=== PATIENT | male | born 1965 | race Caucasian/White ===

== ENCOUNTER 2020-04-22 14:26 | Emergency (ER) | payer BC, SELFPAY ==
[2020-04-22 14:37] VITALS: BP 152/89; PULSE 64; RESP 20; TEMP 36.8; O2SAT 98
--- NOTE | 2020-04-22 14:44 | ED.EAR ---
HPI - Ear Problem General Chief complaint: Ear Stated complaint: ear pain Source: patient and RN notes reviewed Mode of arrival: ambulatory Limitations: no limitations History of Present Illness HPI Narrative: The patient- previously mostly healthy w/ HTN AODM- presents with left ear discomfort that is mild, worse with pressure/palpation, better with rest. Patient states he has been swimming more; no vertigo, hearing loss, discharge, injury, blood. He would like refill of his blood pressure pills Related Data Home Medications Medication Instructions Recorded Confirmed blood sugar diagnostic #10 each 01/05/20 aspirin 81 mg tablet,delayed 81 mg PO DAILY 02/20/20 02/20/20 release Allergies Allergy/AdvReac Type Severity Reaction Status Date / Time No Known Allergies Allergy Unverified 04/22/20 14:42 Review of Systems Review of Systems: Narrative: General/Constitutional: No weight loss,fever Eyes: N0: Redness,discharge Ears/Nose/Throat: No: Epistaxis,ear discharge Respiratory: Denies: Hemoptysis Gastrointestinal: No Vomiting, Bleeding-rectal Skin: No Lumps, eruption Neurologic: No Focal Weakness,Sz Hematologic: Denies: Petechiae/Purpura Psychiatric: No: Suicida ideationl All Other Systems: Reviewed and Negative PMFSH Social History Social History Smoking status: Never smoker Alcohol intake: current Comments At time of signature, agree with nursing past medical, surgical, social and family history. There is no relevant family history pertinent to the presenting complaint Exam Narrative: Exam Narrative: General Appearance: Well appearing, Well nourished, No distress EYE: PERRLA , EOMI Ears: Left EAC with mucopus, right external ear normal, Auditory canal normal Nose: Normal nose, Nares clear Mouth/Throat: Normal appearing, Normal lips: Supple, Respiratory: Airway patent, No respiratory distress Skin: Warm, Dry Neurological: A&O x3, Normal affect Course Vital Signs Vital signs: Vital Signs Temperature 98.2 F 04/22/20 14:37 Pulse Rate 64 04/22/20 14:37 Respiratory Rate 20 04/22/20 14:37 Blood Pressure 152/89 H 04/22/20 14:37 Pulse Oximetry 98 04/22/20 14:37 Temperature 98.2 F 04/22/20 14:37 Pulse Rate 64 04/22/20 14:37 Respiratory Rate 20 04/22/20 14:37 Blood Pressure 152/89 H 04/22/20 14:37 Pulse Oximetry 98 04/22/20 14:37 Medical Decision Making Vital Signs Vital Signs: Vital Signs Temperature 98.2 F 04/22/20 14:37 Pulse Rate 64 04/22/20 14:37 Respiratory Rate 20 04/22/20 14:37 Blood Pressure 152/89 H 04/22/20 14:37 Pulse Oximetry 98 04/22/20 14:37 Temperature 98.2 F 04/22/20 14:37 Pulse Rate 64 04/22/20 14:37 Respiratory Rate 04/22/20 14:37 Blood Pressure 152/89 H 04/22/20 14:37 Pulse Oximetry 98 04/22/20 14:37 Discharge Plan Discharge Clinical Impression: Otitis externa Qualifiers: Otitis externa type: unspecified type Chronicity: acute Laterality: left Qualified Code(s): H60.502 - Unspecified acute noninfective otitis externa, left ear Patient Disposition: Home, Self-Care Condition: Stable Instructions: Antibiotic Form Prescriptions: New ciprofloxacin HCl [Cipro] 250 mg tablet 250 mg PO Q12H Qty: 6 RF: 0 ygqeoema-wcorpykrw-VR 3.5-10,000-1 mg/mL-unit/mL-% solution 4 drop RIGHT EAR Q6H 7 Days Qty: 10 RF: 0 No Action lisinopril 20 mg tablet 20 mg PO DAILY Qty: 90 RF: 3 metformin 500 mg tablet extended release 24 hr 500 mg PO DAILY Qty: 90 RF: 3 aspirin 81 mg tablet,delayed release (DR/EC) 81 mg PO DAILY RF: 0 (DME) lancets [OneTouch Delica Lancets] 33 gauge misc See Rx Instructions .ROUTE .MEDSUPPLY Qty: 100 RF: 3 scopolamine base 1 mg over 3 days patch 3 day 1 patch TRANSDERM Q72H PRN (Reason: motion sickness) Qty: 10 RF: 1 (DME) blood sugar diagnostic [Blood Glucose Te
== END 2020-04-22 15:16 | disposition home or self-care (01) ==
PROVIDERS: Emergency Provider Emergency Medicine; PCP Family Medicine
DX: H60.502 Unspecified acute noninfective otitis externa, left ear (principal); I10 Essential (primary) hypertension; E11.9 Type 2 diabetes mellitus without complications; Z79.84 Long term (current) use of oral hypoglycemic drugs
CPT/HCPCS: 99213; G0463

== ENCOUNTER 2020-09-25 02:12 | Outpatient (CLI) | payer BC, SELFPAY ==
[2020-09-25 19:32] LABS: SARS-CoV-2 RNA PCR Negative
== END 2020-09-25 02:13 | disposition home or self-care (01) ==
LOC: ANHCOVIDDT 02:13
PROVIDERS: PCP Family Medicine; Visit Provider Internal Medicine Gastroenterology
DX: Z01.812 Encounter for preprocedural laboratory examination (principal); Z20.822 Contact with and (suspected) exposure to COVID-19
CPT/HCPCS: C9803; U0003

== ENCOUNTER 2020-09-29 02:19 | Day surgery (SDC) | payer BC, SELFPAY ==
[2020-09-22 13:08] VITALS: BMI 32.1
[2020-09-29 06:51] VITALS: BP 136/68; PULSE 90; RESP 18; TEMP 36.4; O2SAT 99; BMI 32.1
[2020-09-29] MEDS: LACTATED RINGERS 1,000 ML 150 ML IV CONT (07:08)
[2020-09-29 07:12] LABS: Glucose Point of Care 146 (65-105)
--- NOTE | 2020-09-29 07:39 | WPDANESEPPF ---
Anes - Initial Pre Proc Eval Procedure: Operation Date: 09/29/20 08:00 Proposed Procedures p Screening Colonoscopy - Patrice Felipe MD Date/Time: 09/29/20 07:39 Surgeon: Patrice Felipe MD Pre Op Diagnosis: neoplasm screening Patient Data Age: 55 Gender: M Height: 6 ft 2 in Weight: 113.5 kg Last Vital Signs Temp 97.6 F 09/29/20 06:51 Pulse 90 09/29/20 06:51 Resp 18 09/29/20 06:51 BP 136/68 09/29/20 06:51 Pulse Ox 99 09/29/20 06:51 Allergies Allergy/AdvReac Type Severity Reaction Status Date / Time No Known Allergies Allergy Verified 09/29/20 06:50 Home Medications Medication Instructions Recorded Confirmed Type lancets 33 gauge #100 each 10/27/19 07/06/20 Rx blood sugar diagnostic #10 each 01/05/20 07/06/20 History lisinopril 20 mg tablet 20 mg PO DAILY #90 tablet 02/20/20 09/22/20 Rx metformin 500 mg tablet,extended 500 mg PO DAILY #90 tablet 02/20/20 09/22/20 Rx release 24 hr metoprolol succinate 50 mg 50 mg PO DAILY #30 tablet 04/22/20 09/22/20 Rx tablet,extended release 24 hr blood sugar diagnostic See Rx Instructions .ROUTE 04/28/20 09/22/20 Rx .COMPLEX #100 each atorvastatin 10 mg tablet 10 mg PO DAILY #90 tablet 07/06/20 09/22/20 Rx Laboratory Tests 09/29/20 06:57 POC Capillary Glucose 146 mg/dl H mg/dl (65-105) Patient hx anesthesia problems: none Family hx anesthesia problems: none PMFSH Past Medical History Medical History (Updated 09/29/20 @ 07:39 by Benjamin Ridley MD) Benign essential hypertension Dyslipidemia Hypertension Social History Social History Smoking status: Never smoker Alcohol intake: current Drinks per week: 3 Substance use: unknown Substance use type: unknown Living arrangements: with family Spiritual care concerns: No Anes - Eval Final PreProcedure Day of Procedure 09/29/20 07:39 Patient weight: obese Heart: regular rate and rhythm Lungs: clear to auscultation Airway: Mallampati scale class II Neurological: alert and oriented Last oral intake: >/= 8 hours ASA classification: III Emergent: no Anesthetic plan: proceed Anesthesia type and monitoring: general GIVS and standard monitoring Informed Consent: The patient's anesthetic plan and its attendant risks and benefits were discussed with the patient/family/POA. Questions were solicited and answers provided to the satisfaction of the patient/family/POA.
--- NOTE | 2020-09-29 07:57 | PM.HPGS ---
History of Present Illness History of Present Illness Consent: Risks, benefits, and alternatives have been discussed and questions answered. Patient agrees to proceed with procedure. Chief complaint: neoplasm screening Narrative: Benjamin Cash is a 55 year old male here for first colonoscopy Review of Systems Constitutional: Constitutional: Denies headache(s) and Denies weakness Eyes: Eyes: Denies blurry vision ENT: Reports Normal hearing present, Denies headache(s) and Denies neck pain Cardiovascular: Cardiovascular: Denies chest pain and Denies dyspnea Respiratory: Respiratory: Denies dyspnea Gastrointestinal: Gastrointestinal: Reports no additional gastrointestinal complaints Genitourinary: Genitourinary: Denies dysuria Musculoskeletal: Musculoskeletal: Denies neck pain Integumentary/Breasts: Skin/Breast: Denies dry skin Neurologic: Reports Normal hearing present, Denies headache(s) and Denies weakness Psychiatric: Psychiatric: Denies anxiety Endocrine: Endocrine: Denies change in body appearance Hematologic/Lymphatic: Hematologic/Lymphatic: Denies easy bleeding Allergic/Immunologic: Allergic/Immunologic: Denies urticaria [facility] Past Medical History Medical History (Updated 09/29/20 @ 07:57 by Patrice Felipe MD) Benign essential hypertension Colon cancer screening Dyslipidemia Hypertension Social History Social History Smoking status: Never smoker Alcohol intake: current Drinks per week: 3 Substance use: unknown Substance use type: unknown Living arrangements: with family Spiritual care concerns: No Meds Home Medications and Allergies Home Medications Medication Instructions Recorded Confirmed Type lancets 33 gauge #100 each 10/27/19 07/06/20 Rx blood sugar diagnostic #10 each 01/05/20 07/06/20 History lisinopril 20 mg tablet 20 mg PO DAILY #90 tablet 02/20/20 09/22/20 Rx metformin 500 mg tablet,extended 500 mg PO DAILY #90 tablet 02/20/20 09/22/20 Rx release 24 hr metoprolol succinate 50 mg 50 mg PO DAILY #30 tablet 04/22/20 09/22/20 Rx tablet,extended release 24 hr blood sugar diagnostic See Rx Instructions .ROUTE 04/28/20 09/22/20 Rx .COMPLEX #100 each atorvastatin 10 mg tablet 10 mg PO DAILY #90 tablet 07/06/20 09/22/20 Rx Allergies Allergy/AdvReac Type Severity Reaction Status Date / Time No Known Allergies Allergy Verified 09/29/20 06:50 Vital Signs Vital Signs - 24 hr 09/29/20 06:51 Temperature 97.6 F Pulse Rate 90 Respiratory Rate 18 Blood Pressure 136/68 Pulse Oximetry 99 Exam Const: General: comfortable and no acute distress HENMT: General nose exam: Normal nares present Eyes: General: appearance normal, both eyes and all related structures Neck: Neck: no JVD Resp: Auscultation: clear to auscultation bilaterally Cardio: Rate: regular rate Rhythm: regular rhythm GI: Inspection: non-distended GI Palp: Yes Soft to palpation Skin: General skin exam: normal color Neuro: General: gait normal Speech: normal speech Extrem: General: normal to inspection Psych: Mental Status: mental status grossly normal Assessment and Plan Assessment and plan (1) Colon cancer screening: Code(s): Z12.11 - Encounter for screening for malignant neoplasm of colon Status: Acute Assessment and Plan: will proceed with colonoscopy
[2020-09-29 08:18] VITALS: BP 101/56; PULSE 68; RESP 20; O2SAT 98
[2020-09-29 08:28] VITALS: BP 103/61; PULSE 66; RESP 18; O2SAT 96
[2020-09-29 08:38] VITALS: BP 124/72; PULSE 64; RESP 18; O2SAT 98
== END 2020-09-29 09:00 | disposition home or self-care (01) ==
PROVIDERS: PCP Family Medicine; Visit Provider Internal Medicine Gastroenterology
PROC: 0DJD8ZZ Inspection of Lower Intestinal Tract, Via Natural or Artificial Opening Endoscopic (ICD-10-PCS; CPT 45378; principal; 2020-09-29 08:00)
DX: Z12.11 Encounter for screening for malignant neoplasm of colon (principal); K64.8 Other hemorrhoids; I10 Essential (primary) hypertension; E78.5 Hyperlipidemia, unspecified; E66.9 Obesity, unspecified; Z68.32 Body mass index [BMI] 32.0-32.9, adult
CPT/HCPCS: 45378; J2001; J2704; J7120

== ENCOUNTER → 2021-08-10 09:41 | Outpatient (CLI) | payer BC, SELFPAY ==
--- NOTE | ~2021-08-10 | XR_ITS ---
XR chest 2V 08/10/2021 09:59 Indication: Fatigue. Dyspnea. Procedure: 2 view chest Comparison: 09/25/2014 Findings: Heart size normal. No focal air space disease, pulmonary edema, pleural effusion or suspect ed pneumothorax. No acute osseous abnormality. Impression: 1: No acute cardiopulmonary disease. Reviewed, dictated and finalized at location [facility]. [facility] [employer] Impression: 1: No acute cardiopulmonary disease.
== END ==
PROVIDERS: PCP Family Medicine; Visit Provider Physician Assistant
DX: R53.83 Other fatigue (principal)
CPT/HCPCS: 71046

== ENCOUNTER 2024-02-16 09:15 | Emergency (ER) | payer BC, SELFPAY ==
[2024-02-16 09:25] VITALS: BP 140/88; PULSE 66; RESP 16; TEMP 36.6; O2SAT 100
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
[2024-02-16] MEDS: CLINDAMYCIN HCL 150 MG CAP 300 MG PO (11:11)
[2024-02-16 11:12] VITALS: BP 139/89; PULSE 65; RESP 17; TEMP 36.9; O2SAT 98
== END 2024-02-16 11:13 | disposition home or self-care (01) ==
PROVIDERS: Emergency Provider Emergency Medicine; PCP Family Medicine
DX: L03.116 Cellulitis of left lower limb (principal); I10 Essential (primary) hypertension; E78.5 Hyperlipidemia, unspecified
CPT/HCPCS: 99283; A9270

== ENCOUNTER 2025-01-07 07:00 | Outpatient (CLI) | payer BC, SELFPAY ==
--- NOTE | ~2025-01-07 | MR_ITS ---
MRI of the brain Clinical History: Ataxia Technique: Axial and sagittal T1-weighted images were acquired. These were followed by axial T2-weigh zachary, diffusion weighted, gradient, and FLAIR images. Thin cut coronal and axial T1-weighted and T2-we ighted images were performed through the internal auditory canals. Findings: There is no acute infarct, intracranial hemorrhage, or mass lesion. There is minimal chroni c white matter disease adjacent to the atrium of the right lateral ventricle. There is prominent dilatation of the lateral ventricles and third ventricle relative to the fourth ve ntricle and other subarachnoid spaces. Orbits are unremarkable. Paranasal sinuses and mastoid air ronald ls are clear. Major flow voids are intact. Sagittal midline structures are intact. No abnormality seen in the region of the internal auditory ca nals or CP angle regions. IMPRESSION: Findings suspicious for noncommunicating hydrocephalus, with dilatation of the lateral ventricles and third ventricle relative to the fourth ventricle and subarachnoid spaces. Reviewed, dictated and finalized at location . IMPRESSION: Findings suspicious for noncommunicating hydrocephalus, with dilatation of the lateral ventricles and third ventricle relative to the fourth ventricle and sub arachnoid spaces.
== END 2025-01-07 07:01 | disposition home or self-care (01) ==
LOC: MICIMG 07:01
PROVIDERS: PCP Family Medicine; Visit Provider Family Medicine
DX: G91.9 Hydrocephalus, unspecified (principal); R27.0 Ataxia, unspecified
CPT/HCPCS: 70551

== ENCOUNTER 2025-03-02 15:50 | Outpatient (CLI) | payer BC, SELFPAY ==
--- NOTE | ~2025-03-02 | MR_ITS ---
MRI of the brain Clinical History: Hydrocephalus Technique: Axial and sagittal T1-weighted images were acquired. These were followed by axial T2-weigh zachary, diffusion weighted, gradient, and FLAIR images. Following intravenous administration of 20 cc Mu ltiHance gadolinium, T1-weighted fat-sat imaging was performed in the axial, coronal, and sagittal pl anes. COMPARISON: 01/07/2025 Findings: There is no acute infarct, intracranial hemorrhage, or mass lesion. No significant signal a bnormality seen in the brain parenchyma. There is stable dilatation of the lateral ventricles and third ventricle as compared to the fourth ve ntricle and remaining subarachnoid spaces. Orbits are unremarkable. Paranasal sinuses and mastoid air cells are clear. Major intracranial flow voids appear intact. Sagittal midline structures are intact. No abnormal postcontrast enhancement identified. IMPRESSION: No change from prior exam. Findings again suspicious for noncommunicating hydrocephalus with dilatati on of the lateral ventricles and third ventricle as compared to the fourth ventricle remaining subara chnoid spaces. Reviewed, dictated and finalized at location . IMPRESSION: No change from prior exam. Findings again suspicious for noncommunicating hydro cephalus with dilatation of the lateral ventricles and third ventricle as fransisca red to the fourth ventricle remaining subarachnoid spaces.
== END 2025-03-02 15:51 | disposition home or self-care (01) ==
LOC: MICIMG 15:53
PROVIDERS: PCP Family Medicine; Visit Provider Neurological Surgery
DX: G91.9 Hydrocephalus, unspecified (principal)
CPT/HCPCS: 70553; A9577

== ENCOUNTER 2025-07-29 08:03 | Outpatient (CLI) | payer BC, SELFPAY ==
--- OUTSIDE RECORDS SUMMARY | 2008-05-04 08:06 | XMS_ITS | Continuity of Care Document ---
Author Organization [facility] Address [address] [place] [address] [address] [place] [address] Phone Care Team Providers Care Mobile Home Mechanic Name Role Phone Tony Andrews Unavailable Unavailable Procedures Procedure Date Office/outpatient Visit, Est Office/outpatient Visit, Est Eye Exam Established Pt Advance Directives Directive Yes / No Effective Date File Name No Information Encounters Encounter Description Practice Location Reason(s) For Visit Diagnoses Date Provider Providers Copied on Encounter Office/outpat ient Visit, Est [facility], [address] [place] [address] [address], [place], [place], [id number], tel:[phone] [facility] No Information 8 8 Doidallin Jimenez. [address] [facility] , [address], [place], [place], [facility], . tel:[phone] Office/outpat ient Visit, [facility], [address] [place] [address] [address], [place], [place], [id number], [place] tel:[phone] [facility] No Information 3-200 7 Doidallin Jimenez. [address] [facility] , [address], [place], [address], [place]. tel:[phone] [facility], [id number] [place] [address] [address], [place], [place], [id number], [place] tel:[phone] [facility] No Information 6-200 7 Doidallin Jimenez. [address] [facility] , [address], [place], [address], [place]. tel:[phone] Family History Family Member Type Diagnosis Age At Onset No Information Payers Payer name Insurance type Covered democrat ID Benigno perry(s) [facility] BL [id number] Social History Type Description Quantity Date Captured Comments Sex Male Smoking Status No Information Chief Complaint And Reason For Visit No Information Reason For Referral Reason For Referral No Information History Of Present Illness Encounter Date Complaint History Of Prese nt Illness No Information Functional Status Date Functional Assessmen t No Information Instructions Date Instruction Additional Infor mation No Information Assessments Type Assessment Date No Information Patient Care Teams Name Effective Dates (start - stop) Status Members No Information
--- OUTSIDE RECORDS SUMMARY | 2025-07-29 08:09 | XMS_ITS | Clinical Summary ---
Author Organization [facility] [address] [place] [id number] Care Team Providers Care Wind Technician Name Role Phone Gil Pardo MD Primary Care Provider [phone] Allergies No known active allergies Medications atorvastatin (LIPITOR) 10 mg tabletIndicatio ns:hyperlipidem ia Take 1 tablet (10 mg total) by mouth mechanics supervisor before breakfast 5 Active lisinopriL (PRINIVIL,ZESTR IL) 20 mg tabletIndicatio ns:hypertension Take 1 tablet (20 mg total) by mouth mechanics supervisor before breakfast 5 Active metFORMIN XR (GLUCOPHAGE XR) 500 mg 24 hr tabletIndicatio ns:type 2 diabetes mellitus Take 2 tablets (1,000 mg total) by mouth 2 (two) times a day 5 Active Rybelsus 7 mg tabletIndicatio ns:type 2 diabetes mellitus Take 1 tablet (7 mg total) by mouth mechanics supervisor before breakfast 5 Active metoprolol XL (TOPROL-XL) 50 mg extended release tabletIndicatio ns:hypertension Take 1 tablet (50 mg total) by mouth mechanics supervisor before breakfast ON HOLD PER MD D/T SIDE EFFECTS LAST DOSE 04/2025 Active acetaminophen 500 mg capsuleIndicati ons:Pain Take 2 capsules (1,000 mg total) by mouth every 6 (six) hours 5 Active docusate sodium (COLACE) 100 mg capsuleIndicati ons:constipatio n,Stool Softener Take 1 capsule (100 mg total) by mouth 2 (two) times a day 30 capsule Active oxyCODONE (ROXICODONE) 5 mg immediate release tabletIndicatio ns:Pain Take 1 tablet (5 mg total) by mouth every 4 (four) hours as needed for pain 10 tablet 5 Active Additional Information Patient not taking.Reason: states does not need, Reported on 07/09/2025 Active Problems Problem Noted Date Diagnosed Date 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 Encounters Date Type Department Care Team Description 07/09/2025 9:30 AM CDT Office Visit [place] [address] [place] [id number] Rodger Cheatham MD Aqueductal stenosis (HCC) (Primary Dx) 06/29/[address] [address] Mckinley Regan RN FMCHRISTIANO 06/26/2025 7:30 AM CDT - 06/26/2025 11:55 AM CDT Surgery [facility] [address] [place] [address] Rodger Cheatham MD Right Frontal Endoscopic Third Ventriculostomy 06/26/2025 7:30 AM CDT Anesthesia Event [facility] [address] [place] [address] Keila Sims MD PhD Asya Rooney, FRENCH COMBER 06/26/2025 5:59 AM CDT - 06/27/2025 12:02 PM CDT Hospital Encounter [address] [address] Rodger Cheatham MD Aqueductal stenosis (HCC) [Q03.0] (Primary Dx) Discharge Disposition: Discharge to home or self care 06/17/2025 2:30 PM CDT Pre-Admission Testing [facility] ([facility]) [address] [place] [id number] Preoperative testing (Primary Dx); Encounter for preadmission testing; Anticoagulant long-term use 05/27/2025 Documentation [facility] [address] [place] [address] 2 [address] [place] [phone] Mckinley Regan RN FMLA (For surgery) 05/14/2025 1:00 PM CDT Office Visit [address] [place] [address] Rodger Cheatham MD Aqueductal stenosis (HCC) [Q03.0] (Primary Dx); Encounter for preadmission testing; Anticoagulant long-term use 05/13/[address] [place] [address] Hafsa Che 05/11/2025 11:30 AM CDT - 05/11/2025 11:59 PM CDT Hospital Encounter [facility] [address] [place] [address] Rodger Cheatham MD Aqueductal stenosis (HCC) Discharge Disposition: Discharge to home or self care from Last 3 Months Family History Medical History Relation Name Comments Anesthesia problems Neg Hx Social History Tobacco Use Types Packs/Day Years Used Date Smoking Tobacco: Never Smokeless Tobacco: Never Tobacco Cessation:Counseling Given: Not Answered Alcohol Use Standard Drinks/Week Comments Yes 2 (1 standard drink = 0.6 oz pur e alcohol) AUDIT-C Answer Date Recorded Q1: How often do you have a drink containing alc ohol? 2-3 times a week 06/26/2025 Q2: How many drinks containi ng alcohol do you have on a typical day when you are drinking? 1 or 2 06/26/2025 Q3: How often do you have si x or more drinks on one occasion? Never 06/26/2025 Personal Safety Answer Date Recorded Have you ever been in or are you currently in a harmful physical or emotional relationship or is someone making you feel afraid or unsafe? 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 Gender Identity Not on file Sexual Orientation Not on file Last Filed Vital Signs Vital Sign Reading Time Taken Comments Blood Pressure 167/92 07/09/2025 9:39 AM CDT Pulse 73 07/09/2025 9:39 AM CDT Temperature 36.3 C (97.4 F) 07/09/2025 9:39 AM CDT Respiratory Rate 16 07/09/2025 9:39 AM CDT Oxygen Saturation 100% 07/09/2025 9:39 AM CDT Inhaled Oxygen Concentration - - Weight 110.1 kg (242 lb 12.8 oz) 07/09/2025 9:39 AM CDT Height 188 cm (6' 2) 07/09/2025 9:39 AM CDT Body Mass Index 31.17 07/09/2025 9:39 AM CDT Plan of Treatment Health Maintenance Due Date Last Done Comments Albumin Creatinine Ratio, Urine 1965 Colon Cancer Screening-Colonoscopy 1965 Depression Screening 1965 Hepatitis C Screening 1965 Prostate Cancer Screening-PSA 1965 Dilated Eye Exam 1965 Foot Exam 1965 Lipid Panel 1965 Hepatitis B Screening 1983 Regular Well Visit/Exam 18-64 1983 Pneumococcal vaccine <65 (1 of 2 - PCV) 1984 Zoster Vaccine (1 of 2) 2015 Covid-19 Vaccine (3 - 2024-2 6 season) 2025 01/11/2021, 12/21/2020 Influenza Vaccine (#1) 2025 , 08/24/2023, 07/07/2022, Additional history exists DTaP/Tdap/Td Vaccine (2 - Td or Tdap) 10/04/2025 10/04/2015 Hemoglobin A1C 10/25/2025 04/24/2025 eGFR 06/17/2026 06/17/2025 Medical Devices Implanted Type Area Tax Investigator Device Identifier Shelf Expiration Date Model / Serial / Lot Alex Craniomaxillofacial Cover Coker Hole 10mm Cranium Loprfl 3mm Screw [id number] - [id number] Implanted:Qty: 1 on 06/26/2025 by Rodger Cheatham MD at [facility] Alex Craniomaxillofacial [id number] / / Alex Craniomaxillofacial Screw Bone Cmf Cranial [place] Neuro Iii 1.5x4mm Titanium [id number] - [id number] Implanted:Qty: 3 on 06/26/2025 by Rodger Cheatham MD at [facility] Right: Cranial [place] Craniomaxillofacial [id number] / / Procedures Procedure Name Priority Date/Time Associated Diagnosis Comments POCT GLUCOSE DEVICE Routine 06/27/2025 8 :01 AM CDT POCT GLUCOSE DEVICE Routine 06/26/2025 8 :58 PM CDT POCT GLUCOSE DEVICE Routine 06/26/2025 6 :31 PM CDT POCT GLUCOSE DEVICE Routine 06/26/2025 2 :[address] HEAD STEALTH WO CONTRAST ED Urgent/IP Urgent 06/26/2025 12:09 PM CDT POCT GLUCOSE DEVICE Routine 06/26/2025 10:16 AM CDT PERIPHERAL LINE Routine 06/26/2025 8:33 AM CDT ANESTHESIA INTUBATION Routine 06/26/2025 8:30 AM CDT ENDOSCOPIC THIRD VENTRICULOSTOMY 06/26/2025 7:34 AM CDT Aqueductal stenosis (HCC) Case Notes 06/04@1520- Per Mckinley via msg 3 hrs ctc. ICU and no pathology- DMF B CHECK SAMPLE STAT 06/26/2025 7:05 AM CDT POCT GLUCOSE DEVICE Routine 06/26/2025 7 :[address] HEAD STEALTH WO CONTRAST ED Urgent/IP Urgent 06/26/2025 6:40 AM CDT EGFR Routine 06/17/2025 2:45 PM CDT Encounter for preadmission testing DIFFERENTIAL AUTO Routine 06/17/2025 2:4 5 PM CDT Encounter for preadmission testing COMPREHENSIVE METABOLIC PANEL Routine 06/17/2025 2:45 PM CDT Encounter for preadmission testing CBC WITH AUTO DIFFERENTIAL Routine 06/17/2025 2:45 PM CDT Encounter for preadmission testing DRUGS OF ABUSE SCREEN, URINE WITH REFLEX CONFIRMATION Routine 06/17/2025 2:45 PM CDT Encounter for preadmission testing PROTIME-INR Routine 06/17/2025 2:45 PM CDT Encounter for preadmission testing Anticoagulant long-term use TYPE AND SCREEN 14 DAY Routine 2:45 PM CDT Preoperative testing CPAP APTT ALGORITHM Routine 06/17/2025 2 :45 PM CDT Preoperative testing URINALYSIS AND REFLEX TO MICROSCOPIC AND CULTURE Routine 06/17/2025 2:45 PM CDT Encounter for preadmission testing ECG 12-LEAD Routine 06/17/2025 1:58 PM CDT Preoperative testing MRI CINE FLOW STUDY - BRAIN WO CONTRAST Schedule Routine, Read Routine (OP Routine) 05/11/2025 12:58 PM CDT Aqueductal stenosis (HCC) HEMOGLOBIN A1C Routine 04/24/2025 8:12 AM CDT Encounter for preadmission testing Type 2 diabetes mellitus without complication, unspecified whether longterm insulin use (HCC) from Last 3 Months or Most Recently Relevant to Health Maintenance Results * POCT glucose (06/27/2025 8:01 AM CDT) Glucose, POC 176 70 - 199 mg/dL Blood 06/27/2025 8:01 AM CDT 06/27/2025 8:01 AM CDT Rodger Cheatham MD LAB POCT ORDERABLES - DEVICE Final Result Performing Organization Address [facility] Co de Phone Number [facility] [place] [address] * (ABNORMAL) POCT glucose (06/26/2025 8:58 PM CDT) Glucose, POC 256(H) 70 - 199 mg/dL Blood 06/26/2025 8:58 PM CDT 06/26/2025 8:58 PM CDT us Rodger Cheatham MD LAB POCT ORDERABLES - DEVICE Final Result Performing Organization Address [facility] de Phone Number [facility] [place] [address] * POCT glucose (06/26/2025 6:31 PM CDT) Glucose, POC 192 70 - 199 mg/dL Blood 06/26/2025 6:31 PM CDT 06/26/2025 6:31 PM CDT us Rodger Cheatham MD LAB POCT ORDERABLES - DEVICE Final Result Performing Organization Address [facility] de Phone Number [facility] [place] [address] * (ABNORMAL) POCT glucose (06/26/2025 2:25 PM CDT) Glucose, POC 260(H) 70 - 199 mg/dL Blood 06/26/2025 2:25 PM CDT 06/26/2025 2:25 PM CDT us Rodger Cheatham MD LAB POCT ORDERABLES - DEVICE Final Result Performing Organization Address [facility] Co de Phone Number [facility] [place] [address] * CT Head Stealth WO Contrast (06/26/2025 12:09 PM CDT) Anatomical Region Laterality Modality Head and Neck N/A Computed Tomogra phy 06/26/2025 12:5 7 PM CDT Impressions 06/26/2025 12:59 PM CDT Expected postsurgical changes of right frontal approach 3rd ventriculostomy with decrease in size of the dilated lateral and 3rd ventricles. Dictated by: Deep Perkins MD The radiology attending physician has personally reviewed this study, and had reviewed and/or edited this written report and agrees with it. Electronically signed by: Gregorio Thakkar MD Narrative 06/26/2025 12:59 PM CDT EXAMINATION: CT head without contrast HISTORY: Aqueduct stenosis status post 3rd ventriculostomy on 06/26/2025 TECHNIQUE: CT of the head was performed with images acquired from skull base to vertex without intravenous contrast. COMPARISON: Head CT 06/26/2025 6:34 AM FINDINGS: Interval postsurgical changes of right frontal approach endoscopic 3rd ventriculostomy with right frontal orlando hole, pneumocephalus overlying the right frontal convexity, overlying scalp stranding and subcutaneous emphysema, and small volume intraventricular gas and minimal dependent intraventricular blood products. The lateral and 3rd ventricles remain mildly dilated though decreased in size, bifrontal distance measuring 44 mm, previously 47 mm and 3rd ventricle distance measuring 10 mm, previously 14 mm. No mass effect or midline shift is present. The medeiros-white matter differentiation is normal. The visualized portions of the orbits are normal. The visualized portions of the mastoids are normal. The visualized portions of the paranasal sinuses are normal. No fractures are identified. Procedure Note Gregorio Thakkar MD - 06/26/2025 EXAMINATION: CT head without contrast HISTORY: Aqueduct stenosis status post 3rd ventriculostomy on 06/26/2025 TECHNIQUE: CT of the head was performed with images acquired from skull base to vertex without intravenous contrast. COMPARISON: Head CT 06/26/2025 6:34 AM FINDINGS: Interval postsurgical changes of right frontal approach endoscopic 3rd ventriculostomy with right frontal orlando hole, pneumocephalus overlying the right frontal convexity, overlying scalp stranding and subcutaneous emphysema, and small volume intraventricular gas and minimal dependent intraventricular blood products. The lateral and 3rd ventricles remain mildly dilated though decreased in size, bifrontal distance measuring 44 mm, previously 47 mm and 3rd ventricle distance measuring 10 mm, previously 14 mm. No mass effect or midline shift is present. The medeiros-white matter differentiation is normal. The visualized portions of the orbits are normal. The visualized portions of the mastoids are normal. The visualized portions of the paranasal sinuses are normal. No fractures are identified. IMPRESSION: Expected postsurgical changes of right frontal approach 3rd ventriculostomy with decrease in size of the dilated lateral and 3rd ventricles. Dictated by: Deep Perkins MD The radiology attending physician has personally reviewed this study, and had reviewed and/or edited this written report and agrees with it. Electronically signed by: Gregorio Thakkar MD us Rodger Cheatham MD IMG CT PROCEDURES Final Resul t * (ABNORMAL) POCT glucose (06/26/2025 10:16 AM CDT) Glucose, POC 209(H) 70 - 199 mg/dL Blood 06/26/2025 10:1 6 AM CDT 06/26/2025 10:16 AM CDT us Rodger Cheatham MD LAB POCT ORDERABLES - DEVICE Final Result [facility] [place] [address] * Peripheral IV Catheter (06/26/2025 8:33 AM CDT) Narrative Juan Daniel Jones MD - 06/26/2025 8:33 AM CDT Juan Daniel Jones MD 06/26/2025 8:33 AM Peripheral IV Catheter Patient location: OR Staff: Supervising provider: Keila Sims MD PhD Placed by: Resident: Juan Daniel Jones MD Preprocedure prep: Prep solution: alcohol PPE: gloves and provider hat/mask PIV line: Laterality: right Site: hand Catheter size: 18 g Technique: direct visualization Procedure details: good blood return Number of attempts: 1 Assessment: Events: patient tolerated procedure well with no complications Additional comments: Paced by medical student. us Keila Sims MD PhD ANESTHESIA ORDERABLES Final Result * Airway (06/26/2025 8:30 AM CDT) Narrative Juan Daniel Jones MD - 06/26/2025 8:30 AM CDT Juan Daniel Jones MD 06/26/2025 8:31 AM Airway Patient location: OR Urgency: elective Indications for airway management: anesthesia and airway protection Difficult airway: no Staff: Supervising provider: Keila Sims MD PhD Placed by: Resident: Juan Daniel Jones MD Emergent airway documentation: Risks and benefits discussed: yes Consent obtained: yes Consent given by: patient Airway prep: Preoxygenated: yes Patient position: sniffing Mask difficulty assessment: 1 - vent by mask Spontaneous ventilation during airway: absent Sedation level during airway: GA Final airway details: Final airway type: endotracheal airway Tube type: ETT ETT size: 7.5 mm Cuffed: yes Technique used for successful ETT placement: video laryngoscopy Devices/Methods used in placement: stylet Insertion site: oral Blade type: Marialuisa Video blade type: Walton Blade size: 4 Cormack-Lehane (video): grade IIa - partial view of glottis Cuff inflated with: air ETT to lips: 24 cm Placement verified by: auscultation and CO2 detection Airway secured with: silk tape Number of attempts: 1 Planned trial extubation: yes Additional comments: Placed by medical student us Keila Sims MD PhD ANESTHESIA ORDERABLES Final Result * Check Sample (06/26/2025 7:05 AM CDT) ABO Rh O Positive [facility] OTHER 06/26/2025 7:05 AM CDT 06/26/2025 7:12 AM CDT us Rodger Cheatham MD LAB BLOOD ORDERABLES Final Re sult [facility] [place] [address] [facility] * POCT glucose (06/26/2025 7:02 AM CDT) Glucose, POC 162 70 - 199 mg/dL Blood 06/26/2025 7:02 AM CDT 06/26/2025 7:02 AM CDT Rodger Cheatham MD LAB POCT ORDERABLES - DEVICE Final Result [facility] [place] [address] * CT Head Stealth WO Contrast (06/26/2025 6:40 AM CDT) Anatomical Region Laterality Modality Head and Neck N/A Computed Tomogra phy 06/26/2025 6:46 AM CDT Impressions 06/26/2025 12:20 PM CDT 1. No significant change in dilatation of the lateral and 3rd ventricles in keeping with known cerebral aqueduct stenosis. 2. No acute intracranial hemorrhage. Dictated by: Piyush Newman MD The radiology attending physician has personally reviewed this study, and had reviewed and/or edited this written report and agrees with it. Electronically signed by: Gregorio Thakkar MD Narrative 06/26/2025 12:20 PM CDT EXAMINATION: CT head without contrast HISTORY: Aqueduct stenosis surgical planning TECHNIQUE: CT of the head was performed with images acquired from skull base to vertex without intravenous contrast. COMPARISON: MRI 05/11/2025 FINDINGS: There is no acute intracranial hemorrhage. No significant change in dilatation of the lateral and 3rd ventricle in keeping with known cerebral aqueduct stenosis. For reference, the 3rd ventricle measures 1.5 cm. No mass effect or midline shift is present. The medeiros-white matter differentiation is normal. The visualized portions of the orbits are normal. The visualized portions of the mastoids are normal. The visualized portions of the paranasal sinuses are normal. No fractures are identified. Procedure Note Gregorio Thakkar MD - 06/26/2025 EXAMINATION: CT head without contrast HISTORY: Aqueduct stenosis surgical planning TECHNIQUE: CT of the head was performed with images acquired from skull base to vertex without intravenous contrast. COMPARISON: MRI 05/11/2025 FINDINGS: There is no acute intracranial hemorrhage. No significant change in dilatation of the lateral and 3rd ventricle in keeping with known cerebral aqueduct stenosis. For reference, the 3rd ventricle measures 1.5 cm. No mass effect or midline shift is present. The medeiros-white matter differentiation is normal. The visualized portions of the orbits are normal. The visualized portions of the mastoids are normal. The visualized portions of the paranasal sinuses are normal. No fractures are identified. IMPRESSION: 1. No significant change in dilatation of the lateral and 3rd ventricles in keeping with known cerebral aqueduct stenosis. 2. No acute intracranial hemorrhage. Dictated by: Piyush Newman MD The radiology attending physician has personally reviewed this study, and had reviewed and/or edited this written report and agrees with it. Electronically signed by: Gregorio Thakkar MD Rodger Cheatham MD IMG CT PROCEDURES Final Resul t * Drugs of Abuse Screen, Urine with Reflex Confirmation (06/17/2025 2:45 PM CDT) Amphetamine, ur Not Detected CutOff 500ng/mL Comment: Interpretive Data - Amphetamines: Samples containing greater than 500 ng/mL d-methamphetamine or other cross-reacting amphetamine compounds are reported as positive. Amphetamine immunoassays are subject to significant false positive rates due to cross-reactivity of non-amphetamine drugs. Confirmatory testing required for definitive results. Current Interpretive Data was last reviewed 2023. Barbiturates, ur Not Detected CutOff 200ng/mL [facility] Comment: Interpretive Data - Barbiturates: Samples containing greater than 200 ng/mL secobarbital or other cross-reacting barbiturate compounds are reported as positive. False positive and false negative results are possible. Confirmatory testing required for definitive results. Current Interpretive Data was last reviewed 2023. Benzodiazepines, ur Not Detected CutOff 100ng/mL [facility] Comment: Interpretive Data - Benzodiazepines: Samples containing greater than 100 ng/mL nordiazepam or other cross-reacting compounds are reported as positive. False positive and false negative results are possible. Confirmatory testing required for definitive results. Current Interpretive Data was last reviewed 2023. Cannabinoids, ur Not Detected CutOff 50 ng/mL [facility] Comment: Interpretive Data - Cannabinoids: Samples containing greater than 50 ng/mL delta-9 THC -COOH or other cross- reacting compounds are reported as positive. False positive and false negative results are possible. Confirmatory testing required for definitive results. Current Interpretive Data was last reviewed 2023. Cocaine, ur Not Detected CutOff 150ng/mL [facility] Comment: Interpretive Data - Cocaine: Samples containing greater than 150 ng/mL benzoylecgonine or other cross- reacting compounds are reported as positive. False positive and false negative results are possible. Confirmatory testing required for definitive results. Current Interpretive Data was last reviewed 2023. Fentanyl, Ur Not Detected CutOff 5 ng/mL [facility] Comment: Interpretive Data - Fentanyl: Samples containing greater than 5 ng/mL norfentanyl, fentanyl, or other cross-reacting fentanyl compounds are reported as positive. False positive and false negative results are possible. Confirmatory testing required for definitive results. Current Interpretive Data was last reviewed 2023. Methadone, ur Not Detected CutOff 300ng/mL [facility] Comment: Interpretive Data - Methadone: Samples containing greater than 300 ng/mL d,l-methadone or other cross-reacting compounds are reported as positive. False positive and false negative results are possible. Confirmatory testing required for definitive results. Current Interpretive Data was last reviewed 2023. Opiates, ur Not Detected CutOff 300ng/mL [facility] Comment: Interpretive Data - Opiates: Samples containing greater than 300 ng/mL morphine or other cross-reacting compounds are reported as positive. False positive and false negative results are possible. Confirmatory testing required for definitive results. Current Interpretive Data was last reviewed 2023. Oxycodone, ur Not Detected CutOff 100ng/mL [facility] Comment: Interpretive Data - Oxycodone: Samples containing greater than 100 ng/mL oxycodone or other cross-reacting compounds are reported as positive. False positive and false negative results are possible. Confirmatory testing required for definitive results. Current Interpretive Data was last reviewed 2023. Phencyclidine, ur Not Detected CutOff 25 ng/mL [facility] Comment: Interpretive Data - Phencyclidine: Samples containing greater than 25 ng/mL phencyclidine or other cross-reacting compounds are reported as positive. False positive and false negative results are possible. Confirmatory testing required for definitive results. Current Interpretive Data was last reviewed 2023. Urine Creatinine 140 mg/dL [facility] Comment: Interpretive Data Urine Creatinine: < 10 mg/dL is extremely dilute = or > 10 but < 20 mg/dL is dilute = or > 20 mg/dL is normal Current Interpretive Data was last revised on 2017. Urine 06/17/2025 2:45 PM CDT 06/17/2025 3:54 PM CDT Narrative [facility] - 06/17/2025 4:30 PM CDT Drug Screening is performed by immunoassay for medical purposes. If positive, confirmation testing will be performed for amphetamines, benzodiazepines, cocaine, fentanyl, methadone, opiates, oxycodone, and phencyclidine. us Rodger Cheatham MD LAB URINE ORDERABLES Final Re sult Performing Organization Address City/[facility]/ZIP Co de Phone Number [facility] [place] [address] * TYPE AND SCREEN 14 DAY (06/17/2025 2:45 PM CDT) Nelly, indirect Negative ABO Rh O Positive [facility] Blood 06/17/2025 2:45 PM CDT 06/17/2025 4:13 PM CDT Narrative [facility] - 06/17/2025 5:12 PM CDT Has the patient had Daratumumab or Isatuximab in the past 6 months?->No Is this test being ordered in advance for a procedure?->Yes Expected date of procedure:->06/26/25 Has the patient been transfused in the past 3 months?->No us Narendra Allred NP LAB BLOOD BANK TEST ORDRyne MARTIN Final Result Performing Organization Address City/[facility]/ZIP Co de Phone Number [facility] Department [place] [address] * eGFR (06/17/2025 2:45 PM CDT) Pathologist [facility] eGFR 74 >=60 mL/min/1. 73 m2 Comment: Interpretive Data Reference Interval Normal >/= 90 mL/min/1.73m2 Mildly decreased* 60 - 89 mL/min/1.73m2 Mildly to moderately decreased 45 - 59 mL/min/1.73m2 Moderately to severely decreased 30 - 44 mL/min/1.73m2 Severely decreased 15 - 29 mL/min/1.73m2 Kidney Failure < 15 mL/min/1.73m2 *Relative to young adult level Estimated glomerular filtration rate is determined by the 2020 CKD-EPI equation recommended by the National Kidney Foundation (A Unifying Approach to GFR Estimation: Recommendations of the NKF-ASK Task Force on Reassessing the Inclusion of Race in Diagnosing Kidney Disease, JASN 2020). The CKD-EPI equation should not be used for patients with unstable renal function and has not been validated in children and those over 70. Current interpretive data was last reviewed 2021. Blood 06/17/2025 2:45 PM CDT 06/17/2025 3:59 PM CDT Rodger Cheatham MD LAB BLOOD ORDERABLES Final Re sult [facility] Department [place] [address] * Differential, auto (06/17/2025 2:45 PM CDT) Pathologist [facility] Neutrophil abs 4.66 1.50 - 6.50 K/cumm Imm gran abs 0.02 0.00 - 0.10 K/cumm [facility] Lymphocyte abs 1.83 0.80 - 3.30 K/cumm [facility] Monocyte abs 0.48 0.20 - 0.80 K/cumm [facility] Eosinophil abs 0.15 0.00 - 0.50 K/cumm [facility] Basophil abs 0.08 0.00 - 0.10 K/cumm [facility] Neutrophil pct 64.6 % [facility] Comment: Interpretive Data Percent cell count reference ranges are not reported, since discordance with absolute values may lead to misinterpretation of CBC data. Current Interpretive Data was last revised on 2017. Imm gran pct 0.3 % [facility] Comment: Interpretive Data Percent cell count reference ranges are not reported, since discordance with absolute values may lead to misinterpretation of CBC data. Current Interpretive Data was last revised on 2017. Lymphocyte pct 25.3 % [facility] Comment: Interpretive Data Percent cell count reference ranges are not reported, since discordance with absolute values may lead to misinterpretation of CBC data. Current Interpretive Data was last revised on 2017. Monocyte pct 6.6 % [facility] Comment: Interpretive Data Percent cell count reference ranges are not reported, since discordance with absolute values may lead to misinterpretation of CBC data. Current Interpretive Data was last revised on 2017. Eosinophil pct 2.1 % [facility] Comment: Interpretive Data Percent cell count reference ranges are not reported, since discordance with absolute values may lead to misinterpretation of CBC data. Current Interpretive Data was last revised on 2017. Basophil pct 1.1 % [facility] Comment: Interpretive Data Percent cell count reference ranges are not reported, since discordance with absolute values may lead to misinterpretation of CBC data. Current Interpretive Data was last revised on 2017. Blood 06/17/2025 2:45 PM CDT 06/17/2025 3:59 PM CDT Rodger Cheatham MD LAB BLOOD ORDERABLES Final Re sult [facility] Department [place] [address] * CPAP aPTT algorithm (06/17/2025 2:45 PM CDT) aPTT 28 26 - 38 sec Comment: Interpretive Data Heparin therapeutic range: 66.0 - 100.0 seconds. Range based on correlation with therapeutic heparin activity range of 0.3 - 0.7 Units/mL. Current interpretive data was last revised on 2023. Blood 06/17/2025 2:45 PM CDT 06/17/2025 3:58 PM CDT us Narendra Allred NP LAB BLOOD ORDERABLES Fin al Result Performing Organization Address City/[facility] Co de Phone Number [facility] Department [place] [address] * (ABNORMAL) Urinalysis reflex to microscopic and culture Urine (06/17/2025 2:45 PM CDT) Color, ur Straw Yellow Clarity, ur Clear Clear [facility] Specific gravity, ur 1.027 1.003 - 1.030 [facility] pH, urine 5.5 [facility] Comment: Interpretive Data U rine pH is affected by diet, medications, systemic acid-base disturbances, and renal tubular function. pH may affect urinary stone formation. For example, urine pH below 6.0 may help reduce the tendency for calcium phosphate stones and pH greater than 6.0 may reduce the tendency for uric acid stone formation. Source: [facility] Current Interpretive Data was last revised on 2017 Protein, ur ql Negative Negative [facility] Glucose, ur ql Trace(A) Negative [facility] Ketones, ur Negative Negative [facility] Bilirubin, ur Negative Negative [facility] Blood, ur Negative Negative [facility] Urobilinogen, ur <2.0 <2.0 mg/dL [facility] Nitrite, ur Negative Negative [facility] Leukocyte esterase, ur Negative Negative [facility] UA reflex comment Reflex conditions for microscopic UA and culture not met. [facility] Urine 06/17/2025 2:45 PM CDT 06/17/2025 3:54 PM CDT us Rodger Cheatham MD LAB MICROBIOLOGY - GENERAL OR DERABLES Final Result Performing Organization Address City/[facility]/ZIP Co de Phone Number [facility] Department [place] [address] * CBC with auto differential (06/17/2025 2:45 PM CDT) [facility] WBC 7.22 3.80 - 9.90 K/cumm Hgb 15.3 13.0 - 17.5 g/dL [facility] Hct 43.5 38.9 - 50.3 % [facility] Plt 194 150 - 400 K/cumm [facility] MPV 10.2 9.1 - 12.3 fL [facility] RBC 5.06 4.30 - 5.80 M/cumm [facility] MCV 86.0 81.3 - 96.4 fL [facility] MCH 30.2 27.1 - 33.3 pg [facility] MCHC 35.2 32.3 - 35.7 g/dL [facility] RDW CV 12.0 11.1 - 14.9 % [facility] RDW SD 37.7 35.7 - 48.1 fL [facility] NRBC abs 0.00 0.00 - 0.01 K/cumm [facility] Blood 06/17/2025 2:45 PM CDT 06/17/2025 3:59 PM CDT Rodger Cheatham MD LAB BLOOD ORDERABLES Final Re sult [facility] Department [place] [address] * Protime-INR (06/17/2025 2:45 PM CDT) [facility] PT 10.7 10.2 - 13.5 sec INR 0.95 0.90 - 1.20 [facility] Comment: Interpretive data Oral anticoagulant therapeutic ranges: Venous thromboembolism prophylaxis or treatment: 2.0-3.0 CARDIOLOGY Standard range: 2.0-3.0 High-intensity range: 2.5-3.5 Refer to indication-specific guidelines for appropriate target ranges for prosthetic heart valve replacement. Current interpretive data was last revised on 2019. Blood 06/17/2025 2:45 PM CDT 06/17/2025 3:58 PM CDT Rodger Cheatham MD LAB BLOOD ORDERABLES Final Re sult [facility] Department [place] [address] * Comprehensive metabolic panel (06/17/2025 2:45 PM CDT) Sodium 141 135 - 145 mmol/L Potassium, pl 4.2 3.3 - 4.9 mmol/L [facility] Chloride 103 97 - 110 mmol/L [facility] CO2 28 22 - 32 mmol/L [facility] Anion gap 10 2 - 15 mmol/L [facility] BUN 23 6 - 25 mg/dL [facility] Creatinine 1.14 0.80 - 1.30 mg/dL [facility] Glucose 166 70 - 199 mg/dL [facility] Comment: Interpretive Data Fasting glucose >/= 126 mg/dl is diagnostic for diabetes. Fasting is defined as no caloric intake for at least 8 hours. Fasting glucose between 100 mg/dl to 125 mg/dl is diagnostic of prediabetes. In a patient with classic symptoms of hyperglycemia or hyperglycemic crisis, a random glucose >/= 200 mg/dl is diagnostic for diabetes. In the absence of unequivocal hyperglycemia, results should be confirmed by repeat testing. The classification and Diagnosis of Diabetes Diabetes Care 202; 46: S19-S40. Current interpretive data was last revised 2022. Calcium 9.7 8.5 - 10.3 mg/dL [facility] Bilirubin, total 0.3 0.1 - 1.2 mg/dL [facility] Protein, pl 7.5 6.5 - 8.5 g/dL [facility] Albumin 4.6 3.5 - 5.0 g/dL [facility] Alk phos 88 40 - 130 Units/L [facility] ALT 38 7 - 55 Units/L [facility] AST 27 10 - 50 Units/L [facility] Blood 06/17/2025 2:45 PM CDT 06/17/2025 3:59 PM CDT us Rodger Cheatham MD LAB BLOOD ORDERABLES Final Re sult Performing Organization Address [facility]/ZIP Co de Phone Number [facility] Department [place] [address] * ECG 12 lead (06/17/2025 1:58 PM CDT) Ventricular Rate EKG/Min 74 BPM [facility] Atrial Rate 74 BPM [facility] MO-Interval (MSEC) 212 ms [facility] QRS-Interval (MSEC) 96 ms [facility] QT-Interval (MSEC) 368 ms [facility] QTc 408 ms [facility] P Leonardo 13 degrees [facility] R Leonardo -14 degrees [facility] T Leonardo 44 degrees [facility] Diagnosis Sinus rhythm with 1st degree A-V block Inferior infarct , age undetermined Abnormal ECG No previous ECGs available Confirmed by Samuel William MD ([id number]) on 06/18/2025 7:52:09 AM [facility] 06/17/2025 1:58 PM CDT 06/18/2025 7:52 AM CDT us Narendra Allred [employer] ECG ORDERABLES Final [facility] Performing Organization Address [facility] de Phone Number [facility] * MRI Cine Flow Study - Brain WO Contrast (05/11/2025 12:58 PM CDT) Anatomical Region Laterality Modality Head and Neck N/A Magnetic Resonan ce 05/11/2025 3:57 PM CDT Impressions 05/11/2025 3:57 PM CDT 1. Absent flow through the cerebral aqueduct. The foramen magnum is patent. 2. Ventriculomegaly of the lateral and 3rd ventricles.. Electronically signed by: Greyson Perry M.D. Narrative 05/11/2025 3:57 PM CDT EXAMINATION: Magnetic resonance imaging (MRI) of the brain and brainstem without contrast with CSF flow sequences HISTORY: Aqueduct stenosis. Surgical planning. TECHNIQUE: Multiplanar multi-weighted MRI of the brain and brainstem was performed without intravenous contrast using the general protocol. Cine flow sequences at the level of the cerebral aqueduct were performed. Contrast information: 0 mL Gadoterate Meglumine IV COMPARISON: 03/02/2025 FINDINGS: CSF Flow: There is tapering of the distal aqueduct. There is no CSF flow through the cerebral aqueduct. There is turbulent flow in the lateral and 3rd ventricles. The 4th ventricle is normal in size. There is patent flow through the foramen magnum. Brain: The scalp and calvarium are normal. The superior sagittal sinus demonstrates normal venous flow. The corpus callosum is distended from the ventriculomegaly but is otherwise normal in size and shape. The posterior fossa is unremarkable. The pituitary and sella are normal. The brainstem and craniocervical junction are unremarkable. Diffusion weighted images reveal no hyperintensities to suggest acute cerebral infarction. There is no evidence of acute or chronic hemorrhage. There is dilation of the lateral and 3rd ventricles with sparing of the 4th ventricle. The paranasal sinuses are normal. The visualized portions of the mastoids are unremarkable. There is fluid on the optic nerve sheaths bilaterally. The globes remain round. Normal flow voids are demonstrated in the carotid arteries and basilar artery. Procedure Note Greyson Perry III, MD PhD - 05/11/2025 EXAMINATION: Magnetic resonance imaging (MRI) of the brain and brainstem without contrast with CSF flow sequences HISTORY: Aqueduct stenosis. Surgical planning. TECHNIQUE: Multiplanar multi-weighted MRI of the brain and brainstem was performed without intravenous contrast using the general protocol. Cine flow sequences at the level of the cerebral aqueduct were performed. Contrast information: 0 mL Gadoterate Meglumine IV COMPARISON: 03/02/2025 FINDINGS: CSF Flow: There is tapering of the distal aqueduct. There is no CSF flow through the cerebral aqueduct. There is turbulent flow in the lateral and 3rd ventricles. The 4th ventricle is normal in size. There is patent flow through the foramen magnum. Brain: The scalp and calvarium are normal. The superior sagittal sinus demonstrates normal venous flow. The corpus callosum is distended from the ventriculomegaly but is otherwise normal in size and shape. The posterior fossa is unremarkable. The pituitary and sella are normal. The brainstem and craniocervical junction are unremarkable. Diffusion weighted images reveal no hyperintensities to suggest acute cerebral infarction. There is no evidence of acute or chronic hemorrhage. There is dilation of the lateral and 3rd ventricles with sparing of the 4th ventricle. The paranasal sinuses are normal. The visualized portions of the mastoids are unremarkable. There is fluid on the optic nerve sheaths bilaterally. The globes remain round. Normal flow voids are demonstrated in the carotid arteries and basilar artery. IMPRESSION: 1. Absent flow through the cerebral aqueduct. The foramen magnum is patent. 2. Ventriculomegaly of the lateral and 3rd ventricles.. Electronically signed by: Greyson Perry M.D. Rodger Cheatham MD IMG MRI PROCEDURES Final Resu lt * (ABNORMAL) Hemoglobin A1c (04/24/2025 8:12 AM CDT) Hgb A1C 7.6(H) 4.0 - 5.6 % Estimated Average Glucose 171 mg/dL [facility] Comment: The ADA recommends reporting an estimated Average Glucose (eAG) with all Hemoglobin A1c results using the equation derived from a study of 507 normal and diabetic adults. Minority populations were underrepresented and children were not included. (Diabetes Care 31:7526-5500, 2008). The eAG is not equivalent to a fasting glucose. Blood 04/24/2025 8:12 AM CDT 04/24/2025 10:46 AM CDT Rodger Cheatham MD LAB BLOOD ORDERABLES Final Re sult [facility] [id number] [facility] [place] [address] from Last 3 Months or Most Recently Relevant to Health Maintenance Insurance [employer] [facility] [employer] [facility] Care Teams Wind Technician Relationship Specialty Start Date End Date Gil Pardo MD [facility] [address] [address] PCP - General Family Medicine 04/08/25
--- OUTSIDE RECORDS SUMMARY | 2025-07-29 08:09 | XMS_ITS | Encounter Summary ---
Author Organization [facility] Address [address] [place] [address] Phone Care Team Providers Care Senior Librarian Name Role Phone Gil Pardo MD Primary Care Provider [phone] Encounter Details Date Type Department Care Team (Late st Contact Info) Description 04/07/2025 Telephone [facility] Medicine Scheduling [facility] [place] [address] Rafaela Landers Social History Tobacco Use Types Packs/Day Years Used Date Smoking Tobacco: Never Assessed Sex and Gender Information Value Date Recorded Sex Assigned at Not on file Legal Sex Male 2:06 AM [employer] Gender Identity Not on file Sexual Orientation Not on file documented as of this encounter Functional Status * BP Location Answer Date of Assessment Author Left arm 04/10/2025 9:28 AM [place] Cleo Cali MA * BP Location Answer Date of Assessment Author Left arm 04/10/2025 9:28 AM Cleo Duke MA documented as of this encounter Plan of Treatment Not on file documented as of this encounter Visit Diagnoses Not on filedocumented in this encounter Care Teams Senior Librarian Relationship Specialty Start Date End Date Gil Pardo MD [address] [place] [address] [place] [address] PCP - General Family Medicine 04/08/25 documented as of this encounter
[2025-07-29 13:17] LABS: Alanine Aminotransferase 34 U/L (6-50); Albumin Level 4.5 g/dL (3.5-5.1); Alkaline Phosphatase 99 U/L (38-126); Anion Gap 9 mmol/L (4-12); Aspartate Amino Transferase 40 U/L (17-59); Bilirubin,Total 0.7 mg/dL (0.2-1.3); Blood Urea Nitrogen 19 mg/dL (9-20); Calcium 9.6 mg/dL (8.4-10.2); Carbon Dioxide 28 mmol/L (22-30); Chloride 102 mmol/L (98-107); Estimated Glomerular Filt Rate > 60; Glucose 156 mg/dL (65-110); Potassium 3.9 mmol/L (3.4-5.0); Sodium 139 mmol/L (137-145); Total Protein 7.4 g/dL (6.3-8.2)
[2025-07-29 13:54] LABS: Hemoglobin A1C 7.4 % (<5.7)
== END 2025-07-29 08:04 | disposition home or self-care (01) ==
LOC: ANHGOSHLAB 08:04
PROVIDERS: PCP Family Medicine; Visit Provider Family Medicine
DX: E11.9 Type 2 diabetes mellitus without complications (principal)
CPT/HCPCS: 36415; 80053; 83036